=== PATIENT | male | born 1995 | race Caucasian/White ===

== ENCOUNTER 2018-11-03 02:01 | Emergency (ER) | payer OTHER ==
[~2018-11-03] VITALS: Ht 182.9 cm; Wt 65.8 kg
[2018-11-03 02:09] VITALS: BP 139/87; Ht 182.9 cm; Wt 65.8 kg
== END 2018-11-03 02:24 | disposition other institution (70) ==
LOC: ED 02:01
DX: Z02.89 Encounter for other administrative examinations (principal)